=== PATIENT | male | born 2000 | race Caucasian/White ===

== ENCOUNTER 2024-03-14 13:00 | Emergency (ER) | payer BC ==
[~2024-03-14] VITALS: Ht 195.6 cm; Wt 95.3 kg
[2024-03-14 13:00] VITALS: BP_SYST 116; PULSE 89; RESP 20; TEMP 98.4; O2SAT 96
[2024-03-14 13:46] LABS: BASOPHILS % (AUTO) 0.1 % (0.0-2.0); EOSINOPHILS % (AUTO) 0.1 % (0.0-4.0); HEMATOCRIT 46.4 % (36-54); HEMOGLOBIN 15.4 g/dL (14.0-18.0); LYMPHOCYTES # (AUTO) 8.5 K/uL (1.0-5.5); LYMPHOCYTES % (AUTO) 61.2 % (20.5-51.5); MEAN CORPUSCULAR HEMOGLOBIN 31 pg (27-31); MEAN CORPUSCULAR HGB CONC 33 % (32-36); MEAN CORPUSCULAR VOLUME 92 fL (79.0-98.0); MONOCYTES # (AUTO) 1.2 K/uL (0.0-1.0); MONOCYTES % (AUTO) 8.6 % (1.7-9.3); NEUTROPHILS # (AUTO) 4.2 K/uL (1.8-7.7); PLATELET COUNT (AUTO) 182 K/uL (130-430); RED BLOOD CELL COUNT(AUTO) 5.02 MIL/uL (4.2-6.2); RED CELL DISTRIBUTION WIDTH 13.5 % (9.0-15.0); WHITE BLOOD COUNT (AUTO) 13.9 K/uL (4.8-10.8)
[2024-03-14 14:06] LABS: CALCIUM 8.9 mg/dL (8.4-11.0); CREATININE 1.46 mg/dL (0.55-1.30); POTASSIUM 4.1 mmol/L (3.5-5.1)
[2024-03-14] MEDS ORDERED: CEFD300C3 PO (16:24)
[2024-03-14] MEDS ORDERED: IBUP-1969 PO (16:24)
[2024-03-14] MEDS ORDERED: DEC4 PO (16:24)
[2024-03-14] MEDS ORDERED: cefTRIAXone 1 GM VIAL ONE (16:26)
[2024-03-14] MEDS: DEXAMETHASONE SOD PHOSPHATE 10 MG/ML VIAL IVP ONE (16:35)
[2024-03-14] MEDS: KETOROLAC TROMETHAMINE 30 MG VIAL IVP ONE (16:35)
[2024-03-14] MEDS: cefTRIAXone 1 GM in D5W 50 ML IV ONE (16:36)
[2024-03-14 17:15] VITALS: BP_SYST 117; PULSE 88; RESP 20; TEMP 98.3; O2SAT 97
== END 2024-03-14 17:17 | disposition home or self-care (01) ==
LOC: SED 13:00
DX: J03.80 Acute tonsillitis due to other specified organisms (principal); R13.10 Dysphagia, unspecified
CPT/HCPCS: 99285; 96365; 70491; 96375; 80048; 85025; 86403; 36415; 87081; 87040; J0696; J1100; J1885; Q9967